=== PATIENT | female | born 1960 | race Caucasian/White ===

== ENCOUNTER → 2018-12-27 | Outpatient (CLI) | payer BC ==
[2017-06-11 10:04] VITALS: BP 124/59
[~2018-12-27] MED LIST: ASPI325T8 PO; CYCL10TA2 PO; DIPH25CA58 PO; GABA-585 PO; IBUP-1027 PO; IBUP-1060 PO; IBUP200T77 PO; LOVA20TA2 PO; METF500T16 PO; OMEP20TA8 PO; RANI300C PO
--- NOTE | 2018-12-27 18:13 | KCIC ---
Bilateral digital screening mammograms with 3-D tomosynthesis: Reason for examination: Routine screening. Comparison is made to previous studies dated 05/20/2017 and 11/25/2015. Bilateral mammograms in CC and oblique projections were obtained with 2-D imaging and 3-D tomosynthesis imaging on a Siemens Inspiration unit and reviewed on the workstation. Interpretation was made with the benefit of CAD. The skin and nipples show no abnormalities. No abnormal axillary lymph nodes are seen. The breast parenchyma shows scattered fatty and fibroglandular density. (Breast density: Category B.) There are small nodules consistent with intramammary lymph nodes in the right breast at the 10:00 C and 9:00 C positions. There are no other dominant masses, suspicious calcifications or architectural distortion. Benign calcifications are present. Impression: No evidence of malignancy. Recommend routine screening. BI-RAD Category 2: Benign. "Our facility is accredited by the [employer] Mammography Program." This patient's information has been entered into a reminder system for the patient to be notified with the results of her examination and a target date for the next mammogram. Electronically signed by: Jenny Ohara MD (12/27/2018 6:10 PM) [id number]
== END | disposition home or self-care (01) ==
LOC: KCIC MAMMO 10:41
PROVIDERS: ATTEND Family Medicine
DX: Z12.31 Encounter for screening mammogram for malignant neoplasm of breast (principal); N64.89 Other specified disorders of breast
CPT/HCPCS: 77063; 77067

== ENCOUNTER → 2020-01-11 | Outpatient (CLI) | payer BC ==
[2017-06-11 10:04] VITALS: BP 124/59
--- NOTE | 2020-01-11 16:45 | KCIC ---
Bilateral digital screening mammograms with 3-D tomosynthesis: Reason for examination: Routine screening. History of bilateral breast reduction. Comparison is made to previous study dated 12/27/2018. Bilateral mammograms in CC and oblique projections were obtained with 2-D imaging and 3-D tomosynthesis imaging on a Siemens Inspiration unit and reviewed on the workstation. Interpretation was made with the benefit of CAD. The skin and nipples show no abnormalities. No abnormal axillary lymph nodes are seen. The breast parenchyma is predominantly fatty. (Breast density: Category A.) There are no dominant masses, suspicious calcifications or architectural distortion. Benign calcifications are present. Impression: No evidence of malignancy. Recommend routine screening. BI-RAD Category 2: Benign. "Our facility is accredited by the [employer] Mammography Program." This patient's information has been entered into a reminder system for the patient to be notified with the results of her examination and a target date for the next mammogram. Electronically signed by: eJnny Ohara MD (01/11/2020 2:08 PM) [id number]
== END ==
LOC: KCIC MAMMO 10:27
PROVIDERS: ATTEND Family Medicine
DX: Z12.31 Encounter for screening mammogram for malignant neoplasm of breast (principal)
CPT/HCPCS: 77063; 77067

== ENCOUNTER 2020-09-23 10:29 | Inpatient (IN) | payer BC, OTHER ==
[~2020-09-23] VITALS: Ht 154.9 cm; Wt 87.9 kg
--- NOTE | 2020-09-23 11:58 | RAD ---
INDICATION: Reason: mental status changes / Spl. Instructions: / History: COMPARISON: Report from MRI from September 2015. TECHNIQUE: Axial CT images obtained through the head without intravenous contrast. One or more of the following individualized dose reduction techniques were utilized for this examinat ion: 1. Automated exposure control; 2. Adjustment of the mA and/or kV according to patient size; 3 . Use of iterative reconstruction technique. FINDINGS: No intracranial hemorrhage. No significant midline shift. Ventricles and sulci are globally prominent. Scattered foci of low attenuation within the white matter. IMPRESSION: * No acute intracranial hemorrhage. * Scattered regions of low attenuation within the white matter. Non-specific in nature but a common finding and frequently secondary to small vessel ischemic disease. Electronically signed by: José Sosa MD (09/23/2020 11:56 AM) [id number]
[2020-09-23 11:59] LABS: BASO # 0.1 x10^3/uL (0.0-0.2); BASO % 1 % (0-3); EOS # 0.4 x10^3/uL (0.0-0.7); EOS % 5 % (0-3); HEMATOCRIT 38.4 % (36.0-47.0); HEMOGLOBIN 13.4 g/dL (12.0-15.5); LYMPH # 2.7 x10^3/uL (1.0-4.8); LYMPH % 28 % (24-48); MEAN CORPUSCULAR HEMOGLOBIN 30 pg (25-35); MEAN CORPUSCULAR HGB CONC 35 g/dL (31-37); MEAN CORPUSCULAR VOLUME 85 fL (79-100); MONO # 0.8 x10^3/uL (0.0-1.1); MONO % 9 % (0-9); NEUT # 5.7 x10^3/uL (1.8-7.7); NEUT % 58 % (31-73); PLATELET COUNT 351 x10^3/uL (140-400); RED BLOOD COUNT 4.52 x10^6/uL (3.50-5.40); RED CELL DISTRIBUTION WIDTH 13.7 % (11.5-14.5); WHITE BLOOD COUNT 9.7 x10^3/uL (4.0-11.0)
[2020-09-23 12:34] LABS: CALCIUM 9.1 mg/dL (8.5-10.1); CREATININE 0.7 mg/dL (0.6-1.0); GFR 84.8; POTASSIUM 4.4 mmol/L (3.5-5.1)
[2020-09-23 12:40] LABS: ALBUMIN 3.4 g/dL (3.4-5.0); DIRECT BILIRUBIN 0.1 mg/dL (0.0-0.2); TOTAL BILIRUBIN 0.3 mg/dL (0.2-1.0); TOTAL PROTEIN 7.2 g/dL (6.4-8.2)
[2020-09-23 13:21] LABS: BILIRUBIN,URINE NEGATIVE (NEG); CLARITY,URINE CLEAR; COLOR,URINE YELLOW; NITRITE,URINE NEGATIVE (NEG); PROTEIN,URINE NEGATIVE (NEG-TRACE); UROBILINOGEN,URINE 0.2 mg/dL (0.2 mg/dL)
[2020-09-23 13:30] LABS: BACTERIA,URINE FEW /HPF (0-FEW); RBC,URINE OCC /HPF (0-2); WBC,URINE OCC /HPF (0-4)
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
[2020-09-23] MEDS ORDERED: ACETAMINOPHEN 325 MG TABLET. PO ONE (16:45)
[2020-09-23] MEDS ORDERED: MULT-245 PO (20:20)
[2020-09-23] MEDS ORDERED: CHOL10004 PO (20:20)
[2020-09-23] MEDS ORDERED: ASCO500T3 PO (20:20)
[2020-09-23] MEDS ORDERED: ASCORBIC ACID 500 MG TABLET PO SCH (21:00)
[2020-09-23] MEDS: metFORMIN 500 MG TABLET PO SCH (21:12)
[2020-09-23] MEDS: IBUPROFEN 200 MG TABLET. PO PRN (21:13)
[2020-09-23 21:16] VITALS: BP 107/49
[2020-09-23 23:00] VITALS: BP 118/54
[2020-09-24 02:54] VITALS: BP 110/55
[2020-09-24] MEDS: IBUPROFEN 200 MG TABLET. PO PRN ×2 (03:20→10:28)
[2020-09-24 07:00] VITALS: BP 118/57
[2020-09-24] MEDS ORDERED: ASCORBIC ACID 500 MG TABLET PO SCH (09:00)
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
[2020-09-24] MEDS: ASPIRIN 325 MG TABLET PO SCH (10:28)
[2020-09-24] MEDS: metFORMIN 500 MG TABLET PO SCH ×2 (10:29→19:08)
[2020-09-24] MEDS: CHOLECALCIFEROL (VITAMIN D3) 5,000 UNIT CAPSULE PO SCH (10:29)
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
[2020-09-24 11:03] VITALS: BP 112/61
--- NOTE | 2020-09-24 12:13 | NUR ---
SW following. Discussed with RN, pt from home, room air, regular diet - fairly independent. PT/OT/ST ordered so pt can be evaluated prior to discharge. Brain MRI ordered. RN advised no SW needs at this time. SW will continue to follow.
--- NOTE | 2020-09-24 13:09 | RAD ---
MRI BRAIN WO Date: 09/24/2020 10:11 AM Indication: concussion Comparison: CT head 09/23/2020. Technique: Multiplanar multisequence MRI of the brain was performed without intravenous contrast usin g the standard protocol. Findings: No acute infarct. No acute or chronic hemorrhage. The ventricles are normal in size and configuration without hydrocephalus. Mild scattered FLAIR hyperintensities in the subcortical and periventricular deep white matter, a nonspecific finding, most commonly seen with chronic small vessel ischemic disea se. Mild generalized cerebral volume loss for The scalp and calvarium are normal. The pituitary and sella are normal. No Chiari malformation. Mild incompletely characterized degenerative spondylosis of the visualized upper cervical spine. The visualized orbits and globes are normal. The visualized paranasal sinuses are clear. The mastoid air cells are clear. Normal flow voids within the vertebral, basilar, and internal carotid arteries indicating patency. IMPRESSION: 1. No acute infarct, hemorrhage, mass, or hydrocephalus. 2. Mild chronic small vessel ischemic disease and generalized cerebral volume loss. Electronically signed by: Norman Starks MD (09/24/2020 1:07 PM) ABELINO
[2020-09-24 15:00] VITALS: BP 112/52
[2020-09-24 19:00] VITALS: BP 116/59
--- NOTE | 2020-09-24 21:00 | NUR ---
Patient stated that she is really constipated and uncomfortable. She stated that she went to the bathroom and had a small bowel movement, but it was very small and described as "hard pellets". Patient requested Milk of Magnesia as that is what has worked for her in the past. Called and obtained order for Milk of Magnesia.
[2020-09-24] MEDS ORDERED: MAGNESIUM HYDROXIDE 2,400 MG/30 ML ORAL.SUSP. PO PRN (21:15)
[2020-09-24 23:00] VITALS: BP 122/48
[2020-09-25 03:00] VITALS: BP 123/56
[2020-09-25 07:00] VITALS: BP 112/54
[2020-09-25] MEDS: CHOLECALCIFEROL (VITAMIN D3) 5,000 UNIT CAPSULE PO SCH (08:57)
[2020-09-25] MEDS: ASPIRIN 325 MG TABLET PO SCH (08:57)
[2020-09-25] MEDS: metFORMIN 500 MG TABLET PO SCH (08:57)
[2020-09-25] MEDS ORDERED: ASCORBIC ACID 1,000 MG TABLET PO SCH (09:00)
[2020-09-25] MEDS: IBUPROFEN 200 MG TABLET. PO PRN (09:01)
--- NOTE | 2020-09-25 10:25 | NUR ---
SW following. Discussed with RN, speech therapy recommended by . Pt will need to be given a script for outpatient speech therapy. RN notified. RN anticipates discharge home today. SW will continue to follow.
[2020-09-25 11:00] VITALS: BP 128/62
--- NOTE | 2020-09-25 12:30 | PDOC ---
Provider Note Date of Service: DATE: 09/25/20 TIME: 12:30 Provider Note outpatient physical therapy and speech therapy, eval and treat Diagnosis: concussion Justifications for Admission Other Justification CARMEN FRANCISCO MD Sep 25, 2020 12:30
--- NOTE | 2020-09-25 12:31 | PDOC ---
Provider Note Date of Service: DATE: 09/25/20 TIME: 12:31 Provider Note off all work until 10/09 due to concussion Justifications for Admission Other Justification CARMEN FRANCISCO MD Sep 25, 2020 12:31
--- NOTE | 2020-09-25 12:35 | PDOC ---
PROGRESS NOTES Date of Service DATE: 09/25/20 TIME: 12:32 Assessment Problems Medical Problems: (1) Altered mental status Status: Acute (2) Postconcussive syndrome Status: Acute (3) Urinary incontinence Status: Acute Concussion with loss of consciousness unknown duration, postconcussion syndrome Urinary incontinence, none in the hospital Plan Physical, occupational, speech therapy, outpatient prescription written Brain rest, off work for at least a couple weeks, work excuse until 10/09 written for patient Discharge today Follow-up with me or my nurse practitioner in 6-8 weeks Subjective Feeling better, wants to go home Objective Vital Signs Date Time Temp Pulse Resp B/P (MAP) Pulse Ox O2 Delivery O2 Flow Rate FiO2 09/25/20 11:00 97.8 65 18 128/62 (84) 94 Room Air 97.8 PHYSICAL EXAM Alert. Oriented to time, place and person. PERRL. EOMI. CN: no focal findings. Muscle tone: normal. Muscle strength: 5/5 DTR: 2+ Plantar reflex: Flexor Gait: Normal. Sensory exam: no abnormal findings. No cerebellar signs elicited. Review of Relevant I have reviewed the following items antonina (where applicable) has been applied. Labs Laboratory Tests Test 09/23/20 13:00 09/23/20 17:43 09/23/20 20:48 09/24/20 07:26 Urine Collection Type Unknown Urine Color Yellow Urine Clarity Clear Urine pH 7.0 (<5.0-8.0) Urine Specific [place] 1.010 (1.000-1.030) Urine Protein Negative mg/dL (NEG-TRACE) Urine Glucose (UA) Negative mg/dL (NEG) Urine Ketones (Stick) Negative mg/dL (NEG) Urine Blood Trace (NEG) Urine Nitrite Negative (NEG) Urine Bilirubin Negative (NEG) Urine Urobilinogen Dipstick 0.2 mg/dL (0.2 mg/dL) Urine Leukocyte Esterase Trace (NEG) Urine RBC Occ /HPF (0-2) Urine WBC Occ /HPF (0-4) Urine Squamous Epithelial Cells Occ /LPF Urine Bacteria Few /HPF (0-FEW) Glucose (Fingerstick) 141 mg/dL (70-99) 107 mg/dL (70-99) 142 mg/dL (70-99) Test 09/24/20 11:53 09/25/20 08:09 Glucose (Fingerstick) 114 mg/dL (70-99) 116 mg/dL (70-99) Laboratory Tests Test 09/25/20 08:09 Glucose (Fingerstick) 116 mg/dL (70-99) Microbiology 09/23/20 Urine Culture - Final, Complete Medications Current Medications Acetaminophen (Tylenol) 650 mg 1X ONCE PO Last administered on 09/23/20at 17:24; Start 09/23/20 at 16:45; Stop 09/23/20 at 16:46; Status DC Ascorbic Acid (Vitamin C) 1,000 mg DAILY PO ; Start 09/23/20 at 21:00; Status Cancel Aspirin (Lily Aspirin) 325 mg DAILY PO Last administered on 09/25/20at 08:57; Start 09/24/20 at 09:00 Vitamin D (Vitamin D3) 5,000 unit DAILY PO Last administered on 09/25/20at 08:57; Start 09/24/20 at 09:00 Metformin HCl (Glucophage) 500 mg BIDWMEALS PO Last administered on 09/25/20at 08:57; Start 09/23/20 at 21:00 Ibuprofen (Motrin) 200 mg PRN Q6HRS PRN PO INFLAMMATION Last administered on 09/25/20at 09:01; Start 09/23/20 at 20:30 Ascorbic Acid (Vitamin C) 1,000 mg DAILY PO Last administered on 09/24/20at 10:28; Start 09/24/20 at 09:00; Stop 09/24/20 at 15:42; Status DC Ascorbic Acid (Vitamin C) 1,000 mg DAILY PO Last administered on 09/25/20at 08:57; Start 09/25/20 at 09:00 Magnesium Hydroxide (Milk Of Magnesia) 2,400 mg PRN DAILY PRN PO CONSTIPATION Last administered on 09/24/20at 21:26; Start 09/24/20 at 21:15 Active Scripts Active Cyclobenzaprine Hcl 10 Mg Tablet 1 Tab PO TID Gabapentin (Gabapentin) 100 Mg Capsule 100 Mg PO TID Reported Vitamin D3 (Vitamin D) 25 Mcg Tablet 125 Mcg PO DAILY 1,000 UNITS = 25 MCG Multi Vitamin Daily (Multivitamin) 1 Each Tablet 1 Tab PO DAILY 30 Days Ascorbic Acid 500 Mg Tablet 1,000 Mg PO DAILY Ibuprofen 400 Mg Tablet 400 Mg PO PRN Q6HRS PRN Ibuprofen 800 Mg Tablet 800 Mg PO PRN Q6HRS PRN Omeprazole 20 Mg Tablet.dr 20 Mg PO DAILY Benadryl (Diphenhydramine Hcl) 25 Mg Capsule 1 Cap PO QHS Ibuprofen 200 Mg Tablet 200 Mg PO PRN Q6HRS PRN Aspirin 325 Mg Tablet 325 Mg PO Lovastatin 20 Mg Tablet 20 Mg PO HS Ranitidine Hcl 300 Mg Capsule 300 Mg PO DAILY Metformin Hcl 500 Mg Tablet 500 Mg PO BIDWMEALS Vitals/I & O Vital Sign - Last 24 Hours 09/24/20 09/24/20 09/24/20 09/24/20 15:00 19:00 19:45 23:00 Temp 97.9 97.9 97.9 97.9 97.9 97.9 Pulse 61 53 61 Resp 16 18 18 B/P (MAP) 112/52 (72) 116/59 (78) 122/48 (72) Pulse Ox 96 95 92 O2 Delivery Room Air Room Air Room Air Room Air 09/25/20 09/25/20 09/25/20 09/25/20 03:00 07:00 08:13 11:00 Temp 97.7 97.5 97.8 97.7 97.5 97.8 Pulse 59 55 65 Resp 18 18 18 B/P (MAP) 123/56 (78) 112/54 (73) 128/62 (84) Pulse Ox 90 95 94 O2 Delivery Room Air Room Air Room Air Room Air Images MRI BRAIN WO Date: 09/24/2020 10:11 AM Indication: concussion Comparison: CT head 09/23/2020. Technique: Multiplanar multisequence MRI of the brain was performed without intravenous contrast using the standard protocol. Findings: No acute infarct. No acute or chronic hemorrhage. The ventricles are normal in size and configuration without hydrocephalus. Mild scattered FLAIR hyperintensities in the subcortical and periventricular deep white matter, a nonspecific finding, most commonly seen with chronic small vessel ischemic disease. Mild generalized cerebral volume loss for The scalp and calvarium are normal. The pituitary and sella are normal. No Chiari malformation. Mild incompletely characterized degenerative spondylosis of the visualized upper cervical spine. The visualized orbits and globes are normal. The visualized paranasal sinuses are clear. The mastoid air cells are clear. Normal flow voids within the vertebral, basilar, and internal carotid arteries indicating patency. IMPRESSION: 1. No acute infarct, hemorrhage, mass, or hydrocephalus. 2. Mild chronic small vessel ischemic disease and generalized cerebral volume loss. Justicifation of Admission Dx: Justifications for Admission: Justification of Admission Dx: N/A CARMEN FRANCISCO MD Sep 25, 2020 12:35
[2020-09-25 15:00] VITALS: BP 97/47
--- NOTE | 2020-09-25 17:04 | NUR ---
Pt discharged home with self care. Discharge instructions and prescriptions discussed. Pt verbalized understanding. Provided Speech therapy phone number and instructions for reaching them. IV removed. Pt assisted to wheelchair and was secured in car with daughter.
--- NOTE | 2020-09-25 21:21 | DS ---
DATE OF DISCHARGE: 09/25/2020 PRIMARY DIAGNOSIS: Closed head injury with postconcussive syndrome. ADDITIONAL DIAGNOSES: Diabetes, depression. HISTORY OF PRESENT ILLNESS: This 60-year-old female was admitted through the emergency room for closed head injury that happened a week or so prior with loss of consciousness. She had not been acting right according to the daughter with short-term memory deficits, occasional incontinence, confusion, intermittent vomiting. She has had at least two CTs prior to this admission; one in the emergency room and all being normal. It was felt to me that was probably postconcussional in nature with nonfocal neurological exam and the patient was admitted with neurology consultation to follow. SUMMARY OF STAY: The patient was admitted. She was monitored, had no further vomiting or incontinence during the stay. Neurology to gave a complete evaluation, felt this was all postconcussional in nature and recommended a brain MRI, which showed no acute infarct, hemorrhage, mass or hydrocephalus, mild chronic small vessel ischemic disease and generalized cerebral volume loss. They felt it was postconcussional in nature ____ she should not be driving or working for the next week or two. It was felt she could be dismissed with assistance of family and this was accomplished on the day of dismissal. DISPOSITION: The patient is discharged to home. DIET: Regular diet. ACTIVITY: As tolerated, office in 1 week. DISCHARGE MEDICATIONS: Listed on the med rec have been addressed. MELODY VALDIVIA: MELODY/hortencia TID: [id number]
== END 2020-09-25 16:45 | disposition home or self-care (01) | DRG 103 ==
LOC: ER 10:29 → 4 NORTH 15:00
PROVIDERS: ADMIT Family Medicine; ATTEND Family Medicine
DX: F07.81 Postconcussional syndrome (principal); E11.9 Type 2 diabetes mellitus without complications; R32 Unspecified urinary incontinence; X58.XXXA Exposure to other specified factors, initial encounter; Z87.828 Personal history of other (healed) physical injury and trauma; Z87.891 Personal history of nicotine dependence; F32.9 Major depressive disorder, single episode, unspecified; Z98.51 Tubal ligation status; Z90.49 Acquired absence of other specified parts of digestive tract; Z79.899 Other long term (current) drug therapy; Z88.8 Allergy status to other drugs, medicaments and biological substances; Y93.89 Activity, other specified; Y92.89 Other specified places as the place of occurrence of the external cause; Y99.8 Other external cause status
CPT/HCPCS: 36415; 70450; 70551; 80048; 80076; 81001; 82962; 84484; 85025; 87086; 93005; 92523-GN; 97535-GO; 99285-25; G0378

== ENCOUNTER 2020-10-10 19:15 | Inpatient (IN) | payer OTHER ==
[~2020-10-10] VITALS: Ht 154.9 cm; Wt 85.8 kg
[~2020-10-10 19:15] MED LIST changes: +ASCO500T3 PO; +CHOL10004 PO; +MULT-245 PO
--- NOTE | 2020-10-10 20:06 | RAD ---
INDICATION: Reason: dsypnes, covid+ / Spl. Instructions: / History: COMPARISON: None. FINDINGS: Single view of chest obtained. Hypoexpanded exam. Bilateral pulmonic opacities throughout the lungs. IMPRESSION: * Moderate bilateral pulmonic opacities which could be from bilateral pneumonia including from viral etiology given the patient's history. Electronically signed by: José Sosa MD (10/10/2020 8:03 PM) [id number]
[2020-10-10 20:10] LABS: BASO % 0 % (0-3); EOS # 0.1 x10^3/uL (0.0-0.7); EOS % 1 % (0-3); HEMATOCRIT 40.8 % (36.0-47.0); HEMOGLOBIN 13.8 g/dL (12.0-15.5); LYMPH # 0.8 x10^3/uL (1.0-4.8); LYMPH % 13 % (24-48); MEAN CORPUSCULAR HEMOGLOBIN 29 pg (25-35); MEAN CORPUSCULAR HGB CONC 34 g/dL (31-37); MEAN CORPUSCULAR VOLUME 84 fL (79-100); MONO # 0.3 x10^3/uL (0.0-1.1); MONO % 5 % (0-9); NEUT # 5.2 x10^3/uL (1.8-7.7); NEUT % 81 % (31-73); PLATELET COUNT 271 x10^3/uL (140-400); RED BLOOD COUNT 4.85 x10^6/uL (3.50-5.40); RED CELL DISTRIBUTION WIDTH 13.6 % (11.5-14.5); WHITE BLOOD COUNT 6.4 x10^3/uL (4.0-11.0)
[2020-10-10] MEDS ORDERED: ALBUTEROL SULFATE 2.5 MG/3 ML NEBU. NEB ONE (20:15)
[2020-10-10] MEDS ORDERED: AZITHRMYCN 500MG IVPB FOR OMNI 250 ML IV ONE (20:15)
[2020-10-10] MEDS ORDERED: IV NORMAL SALINE 1000ML BAG 1,000 ML IV ONE (20:15)
--- NOTE | 2020-10-10 20:17 | PHYS DOC ---
Past Medical History Past Medical History: Depression, Diabetes-Type II (SUSHANT FULLER VP LAB) Past Surgical History: No Surgical History Additional Past Surgical Histo: BREAST REDUCTION (SUSHANT FULLER VP [facility]) Smoking Status: Former Smoker Alcohol Use: None Drug Use: None (SUSHANT FULLER APRN) General Adult EDM: Chief Complaint: SHORTNESS OF BREATH HPI: HPI: Patient is a 60 year old female who presents with patient was diagnosed with Covid 7 days ago. She states that she started having shortness of breath last night and also she cannot sleep well because she keeps waking up gasping for air due to her not being able to use her sleep apnea machine as a got recall. She states that her primary care doctor gave her a albuterol inhaler and start her on prednisone today. She took 40 mg of prednisone today. She has a history of diabetes and takes vitamins "also takes a 325 mg aspirin. She states that she was not ever diagnosed with any lung problems but she did smoke 20 years ago. Patient is not vaccinated. (SUSHANT FULLER VP LAB) Review of Systems: Review of Systems: Constitutional: + fever or chills. [] Eyes: Denies change in visual acuity. [] HENT: Denies nasal congestion or sore throat. [] Respiratory: + cough or +shortness of breath. [] Cardiovascular: Denies chest pain or edema. [] GI: Denies abdominal pain, nausea, vomiting, bloody stools or diarrhea. [] : Denies dysuria. [] Musculoskeletal: Denies back pain or joint pain. + Generalized fatigue [] Integument: Denies rash. [] Neurologic: Denies headache, focal weakness or sensory changes. [] Endocrine: Denies polyuria or polydipsia. [] Lymphatic: Denies swollen glands. [] Psychiatric: Denies depression or anxiety. [] (SUSHANT FULLER VP LAB) Heart Score: C/O Chest Pain: No Risk Factors: Risk Factors: DM, Current or recent (<one month) smoker, HTN, HLP, family history of CAD, obesity. Risk Scores: Score 0 - 3: 2.5% MACE over next 6 weeks - Discharge Home Score 4 - 6: 20.3% MACE over next 6 weeks - Admit for Clinical Observation Score 7 - 10: 72.7% MACE over next 6 weeks - Early Invasive Strategies (SUSHANT FULLER VP LAB) Allergies: Allergies: Allergies Coded Allergies Type Severity Reaction Last Updated Verified morphine Adverse Reaction Intermediate Nausea and Vomiting 10/10/20 Yes (SUSHANT FULLER APRN) Physical Exam: PE: Constitutional: Well developed, well nourished, no acute distress, non-toxic appearance. [] HENT: Normocephalic, atraumatic, bilateral external ears normal, oropharynx moist, no oral exudates, nose normal. [] Eyes: PERRLA, EOMI, conjunctiva normal, no discharge. [] Neck: Normal range of motion, no tenderness, supple, no stridor. [] Cardiovascular:Heart rate regular rhythm, no murmur [] Lungs & Thorax: Bilateral upper breath sounds clear and lower diminished to auscultation [] Abdomen: Bowel sounds normal, soft, no tenderness, no masses, no pulsatile masses. [] Skin: Warm, dry, no erythema, no rash. [] Back: No tenderness, no CVA tenderness. [] Extremities: No tenderness, no cyanosis, no clubbing, ROM intact, no edema. [] Neurologic: Alert and oriented X 3, normal motor function, normal sensory function, no focal deficits noted. [] Psychologic: Affect normal, judgement normal, mood normal. [] (SUSHANT FULLER VP LAB) Current Patient Data: Labs: Laboratory Tests Test 10/10/20 20:00 White Blood Count 6.4 x10^3/uL (4.0-11.0) Red Blood Count 4.85 x10^6/uL (3.50-5.40) Hemoglobin 13.8 g/dL (12.0-15.5) Hematocrit 40.8 % (36.0-47.0) Mean Corpuscular Volume 84 fL (79-100) Mean Corpuscular Hemoglobin 29 pg (25-35) Mean Corpuscular Hemoglobin Concent 34 g/dL (31-37) Red Cell Distribution Width 13.6 % (11.5-14.5) Platelet Count 271 x10^3/uL (140-400) Neutrophils (%) (Auto) 81 % (31-73) H Lymphocytes (%) (Auto) 13 % (24-48) L Monocytes (%) (Auto) 5 % (0-9) Eosinophils (%) (Auto) 1 % (0-3) Basophils (%) (Auto) 0 % (0-3) Neutrophils # (Auto) 5.2 x10^3/uL (1.8-7.7) Lymphocytes # (Auto) 0.8 x10^3/uL (1.0-4.8) L Monocytes # (Auto) 0.3 x10^3/uL (0.0-1.1) Eosinophils # (Auto) 0.1 x10^3/uL (0.0-0.7) Basophils # (Auto) 0.0 x10^3/uL (0.0-0.2) Laboratory Tests 10/10/20 20:00 Vital Signs: Vital Signs Date Time Temp Pulse Resp B/P (MAP) Pulse Ox O2 Delivery O2 Flow Rate FiO2 10/10/20 19:25 97.9 80 18 148/80 96 Room Air 97.9 (SUSHANT FULLER APRN) EKG: EK and read by Dr. Mcneill as sinus rhythm and no STEMI. [address] Mcneill is sinus rhythm and no STEMI (SUSHANT FULLER APRN) Radiology/Procedures: Radiology/Procedures: [] Impression: [facility] [address] [place], [place] [id number] IMAGING REPORT Signed PATIENT: DELMY FAIR AACCOUNT: [id number] : 1960 LOCATION: ER AGE: 60 SEX: F EXAM STATUS: PRE ER ORD. PHYSICIAN: SUSHANT FULLER APRN REASON: dsypnes, covid+ PROCEDURE: PORTABLE CHEST 1V INDICATION: Reason: dsypnes, covid+ / Spl. Instructions: / History: COMPARISON: None. FINDINGS: Single view of chest obtained. Hypoexpanded exam. Bilateral pulmonic opacities throughout the lungs. IMPRESSION: * Moderate bilateral pulmonic opacities which could be from bilateral pneumonia including from viral etiology given the patient's history. Electronically signed by: Amor Carrasco MD (10/10/2020 8:03 PM) [id number] DICTATED and SIGNED BY: AMOR CARRASCO MD DATE: 10/10/[id number] 0 (SUSHANT FULLER APRN) Course & Med Decision Making: Course & Med Decision Making Pertinent Labs and Imaging studies reviewed. (See chart for details) See HPI. Alert and oriented x4. Speaks in one-word sentences. Clear speech. Lungs are clear in upper lobes and diminished in lower lobes. She is given a breathing treatment in the ED and azithromycin. She is also given fluids. Patient also I spoke to Dr. Caro and patient will be admitted due to COVID-19 pneumonia and due to the fact that is not safe to send her home without a CPAP machine at home and she is desatting even more at night and not breathing. [] (SUSHANT FULLER APRN) Dragon Disclaimer: Dragon Disclaimer: This electronic medical record was generated, in whole or in part, using a voice recognition dictation system. (SUSHANT FULLER APRN) COVID-19 Patient Risks: Age 65 or older: No Sign of co-morbidity: Yes Exp to person + for COVID: No Exp to PUI: No Travel from affected area: No Lower respiratory symptoms: Yes Fever: No Other: Yes (fatigue) (SUSHANT FULLER APRN) PPE Use: Full PPE with N95 mask or PAPR: Yes (SUSHANT FULLER APRN) Departure Departure Impression: Primary Impression: Pneumonia due to COVID-19 virus Disposition: ADMITTED INPATIENT Admitting Physician: Delores Caro (SUSHANT FULLER APRN) Condition: STABLE Referrals: DELORES CARO MD (PCP) Attending Signature Attending Signature I have reviewed the PA/SENIOR TAX SPECIALIST's note and plan of care. I was available for consultation as needed during the patient's visit in the emergency department. I agree with the clinical impression, plan, and disposition. (AMMON MCNEILL DO) SUSHANT FULLER APRN Oct 10, 2020 20:17 AMMON MCNEILL DO Oct 10, 2020 22:53
[2020-10-10 20:19] LABS: CALCIUM 9.1 mg/dL (8.5-10.1); CREATININE 0.8 mg/dL (0.6-1.0); GFR 72.7
[2020-10-10 20:24] LABS: ALBUMIN 3.4 g/dL (3.4-5.0); ALBUMIN/GLOBULIN RATIO 0.9 (1.0-1.7); TOTAL BILIRUBIN 0.3 mg/dL (0.2-1.0); TOTAL PROTEIN 7.4 g/dL (6.4-8.2)
[2020-10-10 21:21] LABS: BASE EXCESS COOX -2 mmol/L (-3-3); HCO3 COOX 21 mmol/L (21-28); METHEMOGLOBIN 0.4 % (0.0-1.9); OXYHEMOGLOBIN 92.5 %; PCO2 COOX 31 mmHg (35-46); PO2 COOX 65 mmHg (65-108); SAT O2 COOX 93 % (92-99)
[2020-10-10] MEDS ORDERED: ACETAMINOPHEN 325 MG TABLET. PO PRN (21:45)
[2020-10-11] VITALS (7 sets, daily range): BP systolic 102–140; BP diastolic 56–66
[2020-10-11] MEDS ORDERED: ACET500T68 PO (03:03)
[2020-10-11] MEDS ORDERED: PRED-220 PO ×2 (03:16→05:43)
[2020-10-11] MEDS ORDERED: ALBU2.5V8 IH (03:16)
[2020-10-11] MEDS ORDERED: BENZONATATE 100 MG CAPSULE. PO PRN (03:30)
[2020-10-11] MEDS: ALBUTEROL SULFATE 8GM INHALER. INH PRN ×2 (03:40→21:49)
[2020-10-11] MEDS ORDERED: predniSONE 10 MG TABLET PO SCH ×2 (09:00→12:00)
--- NOTE | 2020-10-11 11:14 | EKG ---
[facility] [address] [place] [address] Test Date: 2020-10-10 Test Time: 21:17:50 Pat Name: DELMY FAIR Department: Room: Gender: F Board Winder: : 1960 Requested By: SUSHANT FULLER Order Number: [id number] Reading MD: Measurements Intervals [place] Rate: 74 P: 25 TX: 170 QRS: -19 QRSD: 78 T: 21 QT: 396 QTc: 445 Interpretive Statements SINUS RHYTHM LEFTWARD AXIS NO SPECIFIC ECG ABNORMALITIES RI6.01 Compared to ECG 10/10/2020 19:32:29 No significant changes
--- NOTE | 2020-10-11 12:20 | HP ---
ADMIT DATE: 10/11/2020 CHIEF COMPLAINT AND HISTORY OF PRESENT ILLNESS: This 60-year-old female has been suffering for COVID for a week or so with positive testing then. She became more short of breath on the day of admission with any kind of activity, presented to the Emergency Room where she was admitted with shortness of breath with activity as well as mainly due to the fact her CPAP machine had been recalled and unable to use it in addition with concerns of her desaturations at night predominantly. PAST MEDICAL HISTORY: Remarkable for recent closed head injury. She has a history of COPD, bronchitis, obstructive sleep apnea, depression, GERD, diabetes. PAST SURGICAL HISTORY: Remarkable for tonsillectomy, adenoidectomy, tubal ligation. MEDICATIONS: Brought with the patient, listed on computer, have been addressed. ALLERGIES: SHE IS ALLERGIC TO MORPHINE. SOCIAL HISTORY AND FAMILY HISTORY: Noncontributory. REVIEW OF SYSTEMS: Remarkable for that as well as severe and relentless cough that happens with any sort of exertion in addition. PHYSICAL EXAMINATION: GENERAL: She is well-developed, well-nourished white female in no acute distress at rest on 2 liters per nasal cannula oxygen with good saturations. VITAL SIGNS: Stable. She is afebrile. She is awake and alert. CHEST: Reveals slightly decreased breath sounds, but clear. HEART: Regular. ABDOMEN: Benign. EXTREMITIES: Without cyanosis, clubbing or edema. NEUROLOGIC: She is intact. LABORATORY DATA: Initial laboratory is remarkable for mostly unremarkable CBC with slight left shift. Blood gas reveals a pO2 of 65 on room air with CO2 slightly depressed at 31. Blood sugars elevated at 183 on her chem panel. DIAGNOSTIC DATA: Imaging shows multiple moderate bilateral pulmonary opacities which felt to be causing bilateral pneumonia. ASSESSMENT: 1. COVID pneumonia with respiratory embarrassment. 2. Other problems as listed above. PLAN: We will ask Pulmonary for help managing this as likely she could go home with some sort of oxygen. I am not sure if she qualifies for any further treatment based on her symptomatology. MELODY/ZAIN/DAYAN DR: Manjula TID: [id number]
--- NOTE | 2020-10-11 12:27 | PDOC ---
PULMONARY PROGRESS NOTES DATE: 10/11/20 TIME: 12:26 Vitals Vital Signs Date Time Temp Pulse Resp B/P (MAP) Pulse Ox O2 Delivery O2 Flow Rate FiO2 10/11/20 11:21 97.8 79 18 119/59 (79) 96 Nasal Cannula 2.0 97.8 Labs Laboratory Tests Test 10/10/20 19:32 10/10/20 20:00 10/10/20 20:40 O2 Saturation 93 % (92-99) Arterial Blood pH 7.44 (7.35-7.45) Arterial Blood pCO2 at Patient Temp 31 mmHg (35-46) Arterial Blood pO2 at Patient Temp 65 mmHg (65-108) Arterial Blood HCO3 21 mmol/L (21-28) Arterial Blood Base Excess -2 mmol/L (-3-3) Oxyhemoglobin 92.5 % Methemoglobin 0.4 % (0.0-1.9) Carbon Monoxide, Quantitative 0.3 % (0.0-1.9) FiO2 Ra White Blood Count 6.4 x10^3/uL (4.0-11.0) Red Blood Count 4.85 x10^6/uL (3.50-5.40) Hemoglobin 13.8 g/dL (12.0-15.5) Hematocrit 40.8 % (36.0-47.0) Mean Corpuscular Volume 84 fL (79-100) Mean Corpuscular Hemoglobin 29 pg (25-35) Mean Corpuscular Hemoglobin Concent 34 g/dL (31-37) Red Cell Distribution Width 13.6 % (11.5-14.5) Platelet Count 271 x10^3/uL (140-400) Neutrophils (%) (Auto) 81 % (31-73) Lymphocytes (%) (Auto) 13 % (24-48) Monocytes (%) (Auto) 5 % (0-9) Eosinophils (%) (Auto) 1 % (0-3) Basophils (%) (Auto) 0 % (0-3) Neutrophils # (Auto) 5.2 x10^3/uL (1.8-7.7) Lymphocytes # (Auto) 0.8 x10^3/uL (1.0-4.8) Monocytes # (Auto) 0.3 x10^3/uL (0.0-1.1) Eosinophils # (Auto) 0.1 x10^3/uL (0.0-0.7) Basophils # (Auto) 0.0 x10^3/uL (0.0-0.2) Sodium Level 137 mmol/L (136-145) Potassium Level 4.0 mmol/L (3.5-5.1) Chloride Level 104 mmol/L (98-107) Carbon Dioxide Level 24 mmol/L (21-32) Anion Gap 9 (6-14) Blood Urea Nitrogen 9 mg/dL (7-20) Creatinine 0.8 mg/dL (0.6-1.0) Estimated GFR (Cockcroft-Gault) 72.7 BUN/Creatinine Ratio 11 (6-20) Glucose Level 183 mg/dL (70-99) Calcium Level 9.1 mg/dL (8.5-10.1) Total Bilirubin 0.3 mg/dL (0.2-1.0) Aspartate Amino Transf (AST/SGOT) 20 U/L (15-37) Alanine Aminotransferase (ALT/SGPT) 36 U/L (14-59) Alkaline Phosphatase 96 U/L (46-116) Troponin I Quantitative < 0.017 ng/mL (0.000-0.055) QO-Des-T-Type Natriuretic Peptide 60 pg/mL (0-124) Total Protein 7.4 g/dL (6.4-8.2) Albumin 3.4 g/dL (3.4-5.0) Albumin/Globulin Ratio 0.9 (1.0-1.7) Lactic Acid Level 1.1 mmol/L (0.4-2.0) Laboratory Tests Test 10/10/20 19:32 10/10/20 20:00 10/10/20 20:40 O2 Saturation 93 % (92-99) Arterial Blood pH 7.44 (7.35-7.45) Arterial Blood pCO2 at Patient Temp 31 mmHg (35-46) Arterial Blood pO2 at Patient Temp 65 mmHg (65-108) Arterial Blood HCO3 21 mmol/L (21-28) Arterial Blood Base Excess -2 mmol/L (-3-3) Oxyhemoglobin 92.5 % Methemoglobin 0.4 % (0.0-1.9) Carbon Monoxide, Quantitative 0.3 % (0.0-1.9) FiO2 Ra White Blood Count 6.4 x10^3/uL (4.0-11.0) Red Blood Count 4.85 x10^6/uL (3.50-5.40) Hemoglobin 13.8 g/dL (12.0-15.5) Hematocrit 40.8 % (36.0-47.0) Mean Corpuscular Volume 84 fL (79-100) Mean Corpuscular Hemoglobin 29 pg (25-35) Mean Corpuscular Hemoglobin Concent 34 g/dL (31-37) Red Cell Distribution Width 13.6 % (11.5-14.5) Platelet Count 271 x10^3/uL (140-400) Neutrophils (%) (Auto) 81 % (31-73) Lymphocytes (%) (Auto) 13 % (24-48) Monocytes (%) (Auto) 5 % (0-9) Eosinophils (%) (Auto) 1 % (0-3) Basophils (%) (Auto) 0 % (0-3) Neutrophils # (Auto) 5.2 x10^3/uL (1.8-7.7) Lymphocytes # (Auto) 0.8 x10^3/uL (1.0-4.8) Monocytes # (Auto) 0.3 x10^3/uL (0.0-1.1) Eosinophils # (Auto) 0.1 x10^3/uL (0.0-0.7) Basophils # (Auto) 0.0 x10^3/uL (0.0-0.2) Sodium Level 137 mmol/L (136-145) Potassium Level 4.0 mmol/L (3.5-5.1) Chloride Level 104 mmol/L (98-107) Carbon Dioxide Level 24 mmol/L (21-32) Anion Gap 9 (6-14) Blood Urea Nitrogen 9 mg/dL (7-20) Creatinine 0.8 mg/dL (0.6-1.0) Estimated GFR (Cockcroft-Gault) 72.7 BUN/Creatinine Ratio 11 (6-20) Glucose Level 183 mg/dL (70-99) Calcium Level 9.1 mg/dL (8.5-10.1) Total Bilirubin 0.3 mg/dL (0.2-1.0) Aspartate Amino Transf (AST/SGOT) 20 U/L (15-37) Alanine Aminotransferase (ALT/SGPT) 36 U/L (14-59) Alkaline Phosphatase 96 U/L (46-116) Troponin I Quantitative < 0.017 ng/mL (0.000-0.055) SJ-Tis-A-Type Natriuretic Peptide 60 pg/mL (0-124) Total Protein 7.4 g/dL (6.4-8.2) Albumin 3.4 g/dL (3.4-5.0) Albumin/Globulin Ratio 0.9 (1.0-1.7) Lactic Acid Level 1.1 mmol/L (0.4-2.0) Medications Active Scripts Medications Dose Route/Sig Max Daily Dose Days Date Category Dose Instructions Prednisone (Prednisone) 10 Mg Tablet 10 Mg PO DAILY 10/11/20 Reported Proair Hfa Inhaler (Albuterol Sulfate) 8.5 Gm Hfa.aer.ad 2 Puff IH PRN Q4-6HRS PRN 21 10/11/20 Reported Acetaminophen 500 Mg Tablet 1 Tab PO PRN Q6HRS PRN 15 10/11/20 Reported Vitamin D3 (Vitamin D) 25 Mcg Tablet 125 Mcg PO DAILY 09/23/20 Reported 1,000 UNITS = 25 MCG Ascorbic Acid 500 Mg Tablet 1,000 Mg PO DAILY 09/23/20 Reported Benadryl (Diphenhydramine Hcl) 25 Mg Capsule 1 Cap PO QHS 09/23/15 Reported Ibuprofen 200 Mg Tablet 200 Mg PO PRN Q6HRS PRN 09/23/15 Reported Aspirin 325 Mg Tablet 325 Mg PO 09/23/15 Reported Metformin Hcl 500 Mg Tablet 500 Mg PO BIDWMEALS 09/23/15 Reported Impression . full note dictated will add remmdesivir and dexamathasome LUZMA NICOLAS MD Oct 11, 2020 12:27
[2020-10-11] MEDS: CHOLECALCIFEROL (VITAMIN D3) 1,000 UNIT TABLET PO SCH (12:34)
[2020-10-11] MEDS: ASPIRIN 325 MG TABLET PO SCH (12:34)
[2020-10-11] MEDS: ASCORBIC ACID 1,000 MG TABLET PO SCH (12:34)
[2020-10-11] MEDS: metFORMIN 500 MG TABLET PO SCH (17:45)
[2020-10-11] MEDS: diphenhydrAMINE HCL 25 MG CAPSULE PO SCH (21:47)
--- NOTE | 2020-10-12 01:18 | CONS ---
DATE OF CONSULTATION: 10/11/2020 ATTENDING PHYSICIAN: Norman Caro MD REASON FOR CONSULTATION: The patient is seen in Pulmonary consultation at the request of Dr. Caro for acute respiratory failure, COVID-19 viral pneumonia. Arterial blood gas revealing a pH of 7.44, PaCO2 of 31, pO2 of 65 on room air. HISTORY OF PRESENT ILLNESS: The patient has been feeling poorly since last Tuesday. Over the last 24 hours, she had increasing shortness of breath, unable to sleep or cough. She tested positive approximately 7 days ago. She comes in with increasing shortness of breath, unable to perform activities of daily living. She took 40 mg of prednisone today. She is a former smoker, smoked on and off for approximately 20 years, quit 20 years ago. PAST MEDICAL HISTORY: Type 2 diabetes, underlying COPD, tobacco dependence in remission, depression, obstructive sleep apnea. PAST SURGICAL HISTORY: Breast reduction. ALLERGIES: MORPHINE. REVIEW OF SYSTEMS: As indicated above; otherwise, a 10-point system was reviewed and negative. CURRENT MEDICATIONS: List was reviewed. PHYSICAL EXAMINATION: VITAL SIGNS: Stable. O2 saturation greater than 92%, currently on 2 liters. NECK: Jugular venous distention was not elevated. No lymphadenopathy. CHEST: Full expansion. LUNGS: Poor air flow with no wheezes. CARDIOVASCULAR: Regular rate and rhythm with S1, S2. No S3. ABDOMEN: Soft, obese. EXTREMITIES: No clubbing, cyanosis or edema. DIAGNOSTIC DATA: Chest x-ray revealed bilateral pulmonary infiltrates compatible with COVID-19 viral pneumonia. LABORATORY DATA: White count was normal. Hemoglobin and hematocrit were noted. Electrolytes were noted. IMPRESSION: 1. Acute hypoxemic respiratory failure. 2. Acute COVID-19 viral pneumonia. 3. Acute exacerbation of chronic obstructive pulmonary disease. 4. Cough, multifactorial, possibly reflux. 5. Depression. 6. Type 2 diabetes. PLAN: 1. Continue support with oxygen supplementation. 2. Steroids. 3. Treat gastroesophageal reflux and chronic cough with Tessalon Perles and antacids. 4. Deep venous thrombosis prophylaxis. 5. Monitor blood sugars. I do appreciate the privilege in sharing in the patient's care. ASHLEE/ROGELIO DR: Chilango TID: [id number]
[2020-10-12 03:02] VITALS: BP 152/73
[2020-10-12] MEDS: ACETAMINOPHEN 500 MG TABLET PO PRN ×2 (04:51→21:28)
[2020-10-12 07:00] VITALS: BP 120/67
--- NOTE | 2020-10-12 08:30 | PDOC ---
PULMONARY PROGRESS NOTES DATE: 10/12/20 TIME: 08:29 Subjective Patient feels better, on not more shortness of air no increasing cough Vitals Vital Signs Date Time Temp Pulse Resp B/P (MAP) Pulse Ox O2 Delivery O2 Flow Rate FiO2 10/12/20 08:02 Nasal Cannula 2.0 10/12/20 07:00 97.2 66 18 120/67 (84) 96 97.2 ROS: No Nausea, No Chest Pain, No Abdominal Pain General: Alert Lungs: Clear Cardiovascular: S1, S2 Abdomen: Soft Neuro Exam: Alert Extremities: No Edema Skin: Warm Labs Laboratory Tests Test 10/10/20 19:32 10/10/20 20:00 10/10/20 20:40 O2 Saturation 93 % (92-99) Arterial Blood pH 7.44 (7.35-7.45) Arterial Blood pCO2 at Patient Temp 31 mmHg (35-46) Arterial Blood pO2 at Patient Temp 65 mmHg (65-108) Arterial Blood HCO3 21 mmol/L (21-28) Arterial Blood Base Excess -2 mmol/L (-3-3) Oxyhemoglobin 92.5 % Methemoglobin 0.4 % (0.0-1.9) Carbon Monoxide, Quantitative 0.3 % (0.0-1.9) FiO2 Ra White Blood Count 6.4 x10^3/uL (4.0-11.0) Red Blood Count 4.85 x10^6/uL (3.50-5.40) Hemoglobin 13.8 g/dL (12.0-15.5) Hematocrit 40.8 % (36.0-47.0) Mean Corpuscular Volume 84 fL (79-100) Mean Corpuscular Hemoglobin 29 pg (25-35) Mean Corpuscular Hemoglobin Concent 34 g/dL (31-37) Red Cell Distribution Width 13.6 % (11.5-14.5) Platelet Count 271 x10^3/uL (140-400) Neutrophils (%) (Auto) 81 % (31-73) Lymphocytes (%) (Auto) 13 % (24-48) Monocytes (%) (Auto) 5 % (0-9) Eosinophils (%) (Auto) 1 % (0-3) Basophils (%) (Auto) 0 % (0-3) Neutrophils # (Auto) 5.2 x10^3/uL (1.8-7.7) Lymphocytes # (Auto) 0.8 x10^3/uL (1.0-4.8) Monocytes # (Auto) 0.3 x10^3/uL (0.0-1.1) Eosinophils # (Auto) 0.1 x10^3/uL (0.0-0.7) Basophils # (Auto) 0.0 x10^3/uL (0.0-0.2) Sodium Level 137 mmol/L (136-145) Potassium Level 4.0 mmol/L (3.5-5.1) Chloride Level 104 mmol/L (98-107) Carbon Dioxide Level 24 mmol/L (21-32) Anion Gap 9 (6-14) Blood Urea Nitrogen 9 mg/dL (7-20) Creatinine 0.8 mg/dL (0.6-1.0) Estimated GFR (Cockcroft-Gault) 72.7 BUN/Creatinine Ratio 11 (6-20) Glucose Level 183 mg/dL (70-99) Calcium Level 9.1 mg/dL (8.5-10.1) Total Bilirubin 0.3 mg/dL (0.2-1.0) Aspartate Amino Transf (AST/SGOT) 20 U/L (15-37) Alanine Aminotransferase (ALT/SGPT) 36 U/L (14-59) Alkaline Phosphatase 96 U/L (46-116) Troponin I Quantitative < 0.017 ng/mL (0.000-0.055) EX-Mdl-U-Type Natriuretic Peptide 60 pg/mL (0-124) Total Protein 7.4 g/dL (6.4-8.2) Albumin 3.4 g/dL (3.4-5.0) Albumin/Globulin Ratio 0.9 (1.0-1.7) Lactic Acid Level 1.1 mmol/L (0.4-2.0) Medications Active Scripts Medications Dose Route/Sig Max Daily Dose Days Date Category Dose Instructions Prednisone (Prednisone) 10 Mg Tablet 10 Mg PO DAILY 10/11/20 Reported Proair Hfa Inhaler (Albuterol Sulfate) 8.5 Gm Hfa.aer.ad 2 Puff IH PRN Q4-6HRS PRN 21 10/11/20 Reported Acetaminophen 500 Mg Tablet 1 Tab PO PRN Q6HRS PRN 15 10/11/20 Reported Vitamin D3 (Vitamin D) 25 Mcg Tablet 125 Mcg PO DAILY 09/23/20 Reported 1,000 UNITS = 25 MCG Ascorbic Acid 500 Mg Tablet 1,000 Mg PO DAILY 09/23/20 Reported Benadryl (Diphenhydramine Hcl) 25 Mg Capsule 1 Cap PO QHS 09/23/15 Reported Ibuprofen 200 Mg Tablet 200 Mg PO PRN Q6HRS PRN 09/23/15 Reported Aspirin 325 Mg Tablet 325 Mg PO 09/23/15 Reported Metformin Hcl 500 Mg Tablet 500 Mg PO BIDWMEALS 09/23/15 Reported Impression . IMPRESSION: 1. Acute hypoxemic respiratory failure. 2. Acute COVID-19 viral pneumonia. 3. Acute exacerbation of chronic obstructive pulmonary disease. 4. Cough, multifactorial, possibly reflux. 5. Depression. 6. Type 2 diabetes. Plan . 10/12 Continue steroids Tessalon Perles for cough Oxygen supplementation Monitor blood sugars 10/11 PLAN: 1. Continue support with oxygen supplementation. 2. Steroids. 3. Treat gastroesophageal reflux and chronic cough with Tessalon Perles and antacids. 4. Deep venous thrombosis prophylaxis. 5. Monitor blood sugars. I do appreciate the privilege in sharing in the patient's care. LUZMA NICOLAS MD Oct 12, 2020 08:30
[2020-10-12] MEDS: ASPIRIN 325 MG TABLET PO SCH (08:31)
[2020-10-12] MEDS: CHOLECALCIFEROL (VITAMIN D3) 1,000 UNIT TABLET PO SCH (08:31)
[2020-10-12] MEDS: DEXAMETHASONE SOD PHOS 4 MG/ML VIAL IVP SCH (08:32)
[2020-10-12] MEDS: metFORMIN 500 MG TABLET PO SCH ×2 (08:32→16:58)
[2020-10-12] MEDS: ASCORBIC ACID 1,000 MG TABLET PO SCH (08:32)
[2020-10-12 10:40] VITALS: BP 111/56
--- NOTE | 2020-10-12 13:21 | PN ---
DATE: 10/12/2020 DAILY PROGRESS NOTE LOCATION: She is in room 658. SUBJECTIVE: This 60-year-old female remains hospitalized with COVID-19 pneumonia and shortness of breath. She states that she was able to take a shower this morning and with less shortness of breath than she was the day prior since the addition of steroids. She does also feel like her cough is maybe slightly decreased. OBJECTIVE: VITAL SIGNS: Stable. She is afebrile. CHEST: With decreased breath sounds. HEART: Regular. ABDOMEN: Benign. O2 remains at 2 liters per nasal cannula with decent saturations. IMPRESSION: 1. Acute hypoxic respiratory failure due to COVID-19 viral pneumonia. 2. Exacerbation of chronic obstructive pulmonary disease. 3. Cough. 4. Diabetes. PLAN: Continue steroids and supportive care. Pulmonary help appreciated. Likely discharge if she is stable the next day or two on O2. MELODY/JESUS MANUEL/DAYAN DR: Manjula TID: [id number]
[2020-10-12 15:00] VITALS: BP 119/58
[2020-10-12 19:22] VITALS: BP 119/85
[2020-10-12] MEDS: diphenhydrAMINE HCL 25 MG CAPSULE PO SCH (21:00)
[2020-10-12] MEDS: IBUPROFEN 200 MG TABLET. PO PRN (21:29)
[2020-10-12 22:50] VITALS: BP 155/84
[2020-10-13 03:13] VITALS: BP 158/76
[2020-10-13 07:00] VITALS: BP 129/63
--- NOTE | 2020-10-13 09:59 | HP ---
ADMIT DATE: 10/13/2020 DAILY PROGRESS NOTE LOCATION: Room 658. SUBJECTIVE: This 60-year-old female remains hospitalized with COVID-19 pneumonia and acute hypoxic respiratory failure. She is feeling better with less shortness of breath around the room. She still has feeling like she needs the oxygen as she gets quite short of breath without it. She can tell a difference between 1 and 2 liters, which they have had her back and forth on in the last 24 hours. She is wondering about something for the cough. OBJECTIVE: VITAL SIGNS: Stable. She is afebrile, awake and alert. CHEST: Clear. HEART: Regular. ABDOMEN: Benign, decent O2 sats on 2 liters. ASSESSMENT: 1. Acute hypoxic respiratory failure due to COVID-19 viral pneumonia. 2. Exacerbation of chronic obstructive pulmonary disease. 3. Cough. 4. Diabetes. PLAN: Continue present care. We will plan on discharge per pulmonary's recommendations as far as O2 and further meds go. JAVIER DR: Manjula TID: [id number]
[2020-10-13] MEDS: metFORMIN 500 MG TABLET PO SCH ×2 (10:10→17:46)
[2020-10-13] MEDS: ASCORBIC ACID 1,000 MG TABLET PO SCH (10:10)
[2020-10-13] MEDS: CHOLECALCIFEROL (VITAMIN D3) 1,000 UNIT TABLET PO SCH (10:10)
[2020-10-13] MEDS: DEXAMETHASONE SOD PHOS 4 MG/ML VIAL IVP SCH (10:10)
[2020-10-13] MEDS: ASPIRIN 325 MG TABLET PO SCH (10:11)
[2020-10-13 10:50] VITALS: BP 120/64
--- NOTE | 2020-10-13 11:50 | PDOC ---
PULMONARY PROGRESS NOTES DATE: 10/13/20 TIME: 11:50 Subjective Patient feels about the same not short of air. Vitals Vital Signs Date Time Temp Pulse Resp B/P (MAP) Pulse Ox O2 Delivery O2 Flow Rate FiO2 10/13/20 10:50 98.0 74 20 120/64 (82) 98 Nasal Cannula 2.0 98.0 ROS: No Nausea, No Chest Pain, No Abdominal Pain General: Alert Lungs: Clear Cardiovascular: S1, S2 Abdomen: Soft Neuro Exam: Alert Extremities: No Edema Skin: Warm Medications Active Scripts Medications Dose Route/Sig Max Daily Dose Days Date Category Dose Instructions Prednisone (Prednisone) 10 Mg Tablet 10 Mg PO DAILY 10/11/20 Reported Proair Hfa Inhaler (Albuterol Sulfate) 8.5 Gm Hfa.aer.ad 2 Puff IH PRN Q4-6HRS PRN 21 10/11/20 Reported Acetaminophen 500 Mg Tablet 1 Tab PO PRN Q6HRS PRN 15 10/11/20 Reported Vitamin D3 (Vitamin D) 25 Mcg Tablet 125 Mcg PO DAILY 09/23/20 Reported 1,000 UNITS = 25 MCG Ascorbic Acid 500 Mg Tablet 1,000 Mg PO DAILY 09/23/20 Reported Benadryl (Diphenhydramine Hcl) 25 Mg Capsule 1 Cap PO QHS 09/23/15 Reported Ibuprofen 200 Mg Tablet 200 Mg PO PRN Q6HRS PRN 09/23/15 Reported Aspirin 325 Mg Tablet 325 Mg PO 09/23/15 Reported Metformin Hcl 500 Mg Tablet 500 Mg PO BIDWMEALS 09/23/15 Reported Impression . IMPRESSION: 1. Acute hypoxemic respiratory failure. 2. Acute COVID-19 viral pneumonia. 3. Acute exacerbation of chronic obstructive pulmonary disease. 4. Cough, multifactorial, possibly reflux. 5. Depression. 6. Type 2 diabetes. Plan . 10/13 updated Yamilet to discharge in the a.m., 6-minute walk Treat reflux Finish course of steroids as an outpatient 10/12 Continue steroids Tessalon Perles for cough Oxygen supplementation Monitor blood sugars 10/11 PLAN: 1. Continue support with oxygen supplementation. 2. Steroids. 3. Treat gastroesophageal reflux and chronic cough with Tessalon Perles and antacids. 4. Deep venous thrombosis prophylaxis. 5. Monitor blood sugars. I do appreciate the privilege in sharing in the patient's care. LUZMA NICOLAS MD Oct 13, 2020 11:50
[2020-10-13 14:49] VITALS: BP 12/67
[2020-10-13 19:35] VITALS: BP 127/60
[2020-10-13] MEDS: diphenhydrAMINE HCL 25 MG CAPSULE PO SCH (21:00)
[2020-10-13] MEDS: IBUPROFEN 200 MG TABLET. PO PRN (22:49)
[2020-10-13 23:00] VITALS: BP 133/65
[2020-10-14 03:20] VITALS: BP 148/73
[2020-10-14 07:00] VITALS: BP 139/66
[2020-10-14] MEDS ORDERED: FLUCONAZOLE 100 MG TABLET. PO ONE (08:00)
--- NOTE | 2020-10-14 08:36 | PDOC ---
PULMONARY PROGRESS NOTES DATE: 10/14/20 TIME: 08:36 Subjective Patient feels better, wanting to go home. Vitals Vital Signs Date Time Temp Pulse Resp B/P (MAP) Pulse Ox O2 Delivery O2 Flow Rate FiO2 10/14/20 03:20 97.9 63 20 148/73 (98) 98 Nasal Cannula 1.0 97.9 ROS: No Nausea, No Chest Pain, No Abdominal Pain General: Alert Lungs: Clear Cardiovascular: S1, S2 Abdomen: Soft Neuro Exam: Alert Extremities: No Edema Skin: Warm Medications Active Scripts Medications Dose Route/Sig Max Daily Dose Days Date Category Dose Instructions Prednisone (Prednisone) 10 Mg Tablet 10 Mg PO DAILY 10/11/20 Reported Proair Hfa Inhaler (Albuterol Sulfate) 8.5 Gm Hfa.aer.ad 2 Puff IH PRN Q4-6HRS PRN 21 10/11/20 Reported Acetaminophen 500 Mg Tablet 1 Tab PO PRN Q6HRS PRN 15 10/11/20 Reported Vitamin D3 (Vitamin D) 25 Mcg Tablet 125 Mcg PO DAILY 09/23/20 Reported 1,000 UNITS = 25 MCG Ascorbic Acid 500 Mg Tablet 1,000 Mg PO DAILY 09/23/20 Reported Benadryl (Diphenhydramine Hcl) 25 Mg Capsule 1 Cap PO QHS 09/23/15 Reported Ibuprofen 200 Mg Tablet 200 Mg PO PRN Q6HRS PRN 09/23/15 Reported Aspirin 325 Mg Tablet 325 Mg PO 09/23/15 Reported Metformin Hcl 500 Mg Tablet 500 Mg PO BIDWMEALS 09/23/15 Reported Impression . IMPRESSION: 1. Acute hypoxemic respiratory failure. 2. Acute COVID-19 viral pneumonia. 3. Acute exacerbation of chronic obstructive pulmonary disease. 4. Cough, multifactorial, possibly reflux. 5. Depression. 6. Type 2 diabetes. Plan . Updated 10/14 6-minute walk Possible discharge 10/13 updated possible to discharge in the a.m., 6-minute walk Treat reflux Finish course of steroids as an outpatient 10/12 Continue steroids Tessalon Perldung for cough Oxygen supplementation Monitor blood sugars LUZMA NICOLAS MD Oct 14, 2020 08:36
[2020-10-14] MEDS: ASPIRIN 325 MG TABLET PO SCH (08:48)
[2020-10-14] MEDS: CHOLECALCIFEROL (VITAMIN D3) 1,000 UNIT TABLET PO SCH (08:49)
[2020-10-14] MEDS: DEXAMETHASONE SOD PHOS 4 MG/ML VIAL IVP SCH (08:49)
[2020-10-14] MEDS: metFORMIN 500 MG TABLET PO SCH ×2 (08:49→17:08)
[2020-10-14] MEDS: ASCORBIC ACID 1,000 MG TABLET PO SCH (08:49)
[2020-10-14] MEDS ORDERED: predniSONE 10 MG TABLET PO SCH (09:00)
--- NOTE | 2020-10-14 09:16 | PN ---
DATE: 10/14/2020 DAILY PROGRESS NOTE LOCATION: She is in room 658. SUBJECTIVE: This 60-year-old female remains hospitalized with bilateral COVID pneumonia and hypoxia due to the same. She is definitely feeling somewhat better on a regular basis. She states pulmonary told her she needed a 6-minute walk test to determine whether the home O2 needs are not there and that she could probably go later today. OBJECTIVE: VITAL SIGNS: Stable. She is afebrile. GENERAL: She is awake and alert. CHEST: Decreased breath sounds. HEART: Regular. ABDOMEN: Benign. O2 at 1 liter per nasal cannula with good saturations. She does note that she gets less short of breath with exertion than she did on admission. ASSESSMENT: COVID-19 pneumonia with acute hypoxic respiratory failure. PLAN: Six-minute walk with determination of O2 needs with likely discharge later today. ANASTASIA DR: Manjula TID: [id number]
[2020-10-14 11:00] VITALS: BP 131/61
[2020-10-14] MEDS: IBUPROFEN 200 MG TABLET. PO PRN (11:17)
[2020-10-14 15:00] VITALS: BP 138/65
--- NOTE | 2020-10-14 16:05 | NUR ---
SS following for discharge planning. SS reviewed pt chart and discussed with pt RN. Pt is from home and is currently on room air. COVID19 positive. Pt had six minute walk and has no home oxygen needs. Pt on IV Decadron. Probable discharge to home when medically ready for discharge. SS will continue to follow for discharge planning.
--- NOTE | 2020-10-14 19:01 | NUR ---
Discharge Note: DELMY FAIR [address] Discharge instructions and discharge home medications reviewed with Patient and a copy given. All questions have been answered and understanding verbalized. The following instructions and handouts were given: pneumonia. Pt educated that she may still be contagious. IV discontinued, no complications. Patient discharged to home with self care.
[2020-10-17] MEDS ORDERED: predniSONE 10 MG TABLET PO SCH (09:00)
[2020-10-20] MEDS ORDERED: predniSONE 5 MG TABLET PO SCH (09:00)
== END 2020-10-14 18:10 | disposition home or self-care (01) | DRG 177 ==
LOC: ER 19:15 → 6 SOUTH 21:45 → OBSVTOIN 21:45 → ER 10-11 01:13
PROVIDERS: ADMIT Family Medicine; ATTEND Family Medicine
DX: U07.1 COVID-19 (principal); J12.82 Pneumonia due to coronavirus disease 2019; J96.01 Acute respiratory failure with hypoxia; J44.0 Chronic obstructive pulmonary disease with (acute) lower respiratory infection; J44.1 Chronic obstructive pulmonary disease with (acute) exacerbation; E11.9 Type 2 diabetes mellitus without complications; F32.9 Major depressive disorder, single episode, unspecified; G47.33 Obstructive sleep apnea (adult) (pediatric); K21.9 Gastro-esophageal reflux disease without esophagitis; Z88.5 Allergy status to narcotic agent; Z87.891 Personal history of nicotine dependence; Z98.51 Tubal ligation status
CPT/HCPCS: 36415; 36600; 71045; 80053; 82805; 83605; 83880; 84484; 85025; 87040; 93005; 94618; 94640; 96365; J0456; J1100; J7030; 99285-25; G0378; J7613; Q0163

== ENCOUNTER 2021-05-31 17:54 | Emergency (ER) | payer OTHER ==
[~2021-05-31] VITALS: Ht 154.9 cm; Wt 89.2 kg
[~2021-05-31 17:54] MED LIST changes: +ACET500T68 PO; +ALBU2.5V8 IH; +CYCL10TA19 PO; -CYCL10TA2 PO; -OMEP20TA8 PO; +OMEP20TA91 PO; +PRED-220 PO
[2021-05-31 18:22] VITALS: BP 152/67
[2021-05-31] MEDS ORDERED: traMADol 50 MG TABLET PO ONE (18:45)
[2021-05-31] MEDS ORDERED: TRAM50TA PO (18:46)
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
== END 2021-05-31 19:42 | disposition home or self-care (01) ==
LOC: ER 17:54
DX: M25.512 Pain in left shoulder (principal); R60.0 Localized edema; E11.9 Type 2 diabetes mellitus without complications; Z88.5 Allergy status to narcotic agent
CPT/HCPCS: 99283